=== PATIENT | female | born 1980 | race Caucasian/White ===

== ENCOUNTER → 2020-03-26 10:03 | Outpatient (BNVA) | payer MEDICAID, SELFPAY | PROVIDERS: PCP Family Medicine; Referring Provider Family Medicine; Visit Provider Hospitalist | DX: J45.51 Severe persistent asthma with (acute) exacerbation (principal); J38.3 Other diseases of vocal cords; J30.9 Allergic rhinitis, unspecified | CPT/HCPCS: 99214 ==

== ENCOUNTER → 2020-04-23 14:28 | Outpatient (BNVA) | payer MEDICAID, SELFPAY | PROVIDERS: PCP Family Medicine; Referring Provider Family Medicine; Visit Provider Nurse Practitioner Family | DX: M53.3 Sacrococcygeal disorders, not elsewhere classified (principal); M54.16 Radiculopathy, lumbar region | CPT/HCPCS: 99212 ==

== ENCOUNTER → 2020-05-10 13:59 | Outpatient (BNVA) | payer MEDICAID, SELFPAY | PROVIDERS: PCP Family Medicine; Referring Provider Family Medicine; Visit Provider Hospitalist | DX: J45.51 Severe persistent asthma with (acute) exacerbation (principal); R06.00 Dyspnea, unspecified | CPT/HCPCS: 90686; 99212 ==

== ENCOUNTER 2020-06-11 09:44 | Outpatient (REF) | payer MEDICAID, SELFPAY ==
--- NOTE | 2020-06-11 09:50 | XR_ITS ---
EXAMINATION: XR CHEST CLINICAL INFORMATION: Dyspnea COMPARISON: Previous chest x-ray July 2019 TECHNIQUE: 2 views of the chest were obtained. FINDINGS: The cardiac and mediastinal contours are normal. The lungs are clear. There is no pleural effusion or pneumothorax. There are surgical clips in the region of the stomach. Bony structures are unremarkable. XR/XR chest 2V IMPRESSION: Unremarkable examination.
== END 2020-06-11 09:45 | disposition home or self-care (01) ==
LOC: HO.XRAY 09:44
PROVIDERS: PCP Family Medicine; Visit Provider Hospitalist
DX: J45.51 Severe persistent asthma with (acute) exacerbation (principal); R06.00 Dyspnea, unspecified
CPT/HCPCS: 71046

== ENCOUNTER → 2020-06-25 14:00 | Outpatient (BNVA) | payer MEDICAID, SELFPAY | PROVIDERS: PCP Family Medicine; Visit Provider Hospitalist | DX: J45.51 Severe persistent asthma with (acute) exacerbation (principal) ==

== ENCOUNTER 2020-07-06 10:26 | Day surgery (SDC) | payer MEDICAID, SELFPAY ==
[2020-07-02 11:25] VITALS: BMI 21.6
--- NOTE | 2020-07-05 09:55 | P.CONAN_ITS ---
Documented by User: More Malka 07/05/20 09:59 HPI - Anesthesia Eval Consult details Narrative: 40yo F for Ganglion Impar Block Asthma exac 06/25/20 by telephone visit with pulm. Inhalers and prednisone rx'd. [facility], [facility] Past Medical History Medical History Asthma Chronic allergic rhinitis Depression Dyspnea Elevated cholesterol GERD (gastroesophageal reflux disease) Vocal cord dysfunction Family History Family History Other Asthma Social History Social History Smoking Status: Never smoker Use of substances other than those prescribed or required for medical reasons: No Advance Directives: No Advance Directives Information Provided: Yes Meds Allergies Allergy/AdvReac Type Severity Reaction Status Date / Time No Known Allergies Allergy Verified 06/25/20 14:37 [No Known Allergies*] Home Medications Medication Instructions Recorded Confirmed Type albuterol sulfate 2.5 mg INHALATION Q4-6H PRN 03/10/20 06/25/20 History albuterol sulfate 90 mcg/actuation 2 puff INHALATION Q4-6H PRN 03/10/20 06/25/20 History aerosol inhaler amitriptyline 10 mg tablet 10 mg PO BEDTIME 03/10/20 06/25/20 History aspirin 81 mg tablet,delayed 81 mg PO DAILY 03/10/20 06/25/20 History release atorvastatin 40 mg tablet 40 mg PO BEDTIME 03/10/20 06/25/20 History budesonide-formoterol HFA 160 2 puff INHALATION BID 03/10/20 06/25/20 History mcg-4.5 mcg/actuation aerosol inhaler ebqspgmimi-rkavlkspftrhl-bfmybsqo 1 cap PO Q4H PRN 03/10/20 06/25/20 History 50 mg-300 mg-40 mg capsule duloxetine 60 mg capsule,delayed 60 mg PO DAILY 03/10/20 06/25/20 History release fluoxetine 10 mg capsule 10 mg PO BID 03/10/20 06/25/20 History mirtazapine 30 mg tablet 30 mg PO BEDTIME 03/10/20 06/25/20 History omeprazole 20 mg tablet,delayed 20 mg PO DAILY 03/10/20 06/25/20 History release prazosin 2 mg capsule 2 mg PO BEDTIME 10/03/20 01/18/21 History prednisone 10 mg tablet 10 mg PO DAILY 03/10/20 06/25/20 History pregabalin 150 mg capsule 150 mg PO DAILY 03/10/20 06/25/20 History risperidone 0.5 mg tablet 0.5 mg PO DAILY 03/10/20 06/25/20 History tiotropium bromide 18 mcg capsule 1 cap INHALATION DAILY 03/10/20 06/25/20 History with inhalation device tizanidine 2 mg capsule 2 mg PO BEDTIME 03/10/20 06/25/20 History Exam Exam Date and Time: July 05, 2020 0955 Height,Weight and Vital Signs: Height 5 ft 4 in Weight 57.153 kg Assessment and Plan Assessment Anesthesia Assessment: Chart Reviewed Documented by User: Bulmaro Howard 07/06/20 13:09 [facility] Past Medical History Medical History Asthma Chronic allergic rhinitis Depression Dyspnea Elevated cholesterol GERD (gastroesophageal reflux disease) Vocal cord dysfunction Family History Family History Other Asthma Social History Social History Smoking Status: Never smoker Use of substances other than those prescribed or required for medical reasons: No Advance Directives: No Advance Directives Information Provided: Yes Meds Allergies Allergy/AdvReac Type Severity Reaction Status Date / Time No Known Allergies Allergy Verified 06/25/20 14:37 [No Known Allergies*] Home Medications Medication Instructions Recorded Confirmed Type albuterol sulfate 2.5 mg INHALATION Q4-6H PRN 03/10/20 06/25/20 History albuterol sulfate 90 mcg/actuation 2 puff INHALATION Q4-6H PRN 03/10/20 06/25/20 History aerosol inhaler amitriptyline 10 mg tablet 10 mg PO BEDTIME 03/10/20 06/25/20 History aspirin 81 mg tablet,delayed 81 mg PO DAILY 03/10/20 06/25/20 History release atorvastatin 40 mg tablet 40 mg PO BEDTIME 03/10/20 06/25/20 History budesonide-formoterol HFA 160 2 puff INHALATION BID 03/10/20 06/25/20 History mcg-4.5 mcg/actuation aerosol inhaler lhqlthkutj-fyfhillmdyxww-lnvrggoh 1 cap PO Q4H PRN 03/10/20 06/25/20 History 50 mg-300 mg-40 mg capsule duloxetine 60 mg capsule,delayed 60 mg PO DAILY 03/10/20 06/25/20 History release fluoxetine 10 mg capsule 10 mg PO BID 03/10/20 06/25/20 History mirtazapine 30 mg tablet 30 mg PO BEDTIME 03/10/20 06/25/20 History omeprazole 20 mg tablet,delayed 20 mg PO DAILY 03/10/20 06/25/20 History release prazosin 2 mg capsule 2 mg PO BEDTIME 03/10/20 06/25/20 History prednisone 10 mg tablet 10 mg PO DAILY 03/10/20 06/25/20 History pregabalin 150 mg capsule 150 mg PO DAILY 03/10/20 06/25/20 History risperidone 0.5 mg tablet 0.5 mg PO DAILY 03/10/20 06/25/20 History tiotropium bromide 18 mcg capsule 1 cap INHALATION DAILY 03/10/20 06/25/20 History with inhalation device tizanidine 2 mg capsule 2 mg PO BEDTIME 03/10/20 06/25/20 History Exam Airway Mallampati Class: II TM Dist: >3cm Neck ROM: Full
[2020-07-06 11:22] VITALS: BMI 21.9
[2020-07-06 11:40] VITALS: BP 124/48; PULSE 84; RESP 16; TEMP 37.4; O2SAT 100
[2020-07-06 11:46] LABS: UPreg QC Valid YES; Urine Pregnancy NEGATIVE (NEGATIVE)
[2020-07-06] MEDS: Lactated Ringers 1,000 ML 100 ML IVCONT (11:48)
--- NOTE | 2020-07-06 13:15 | MHC.SHP ---
Pre-Procedural Eval Section A The History & Physical has been completed within 30 days and I have reviewed it.: No Section B Chief Complaint: coccydynia Details of Present Illness: as above Relevant Family History (Specify if Yes): No Relevant Social History: None Present Medications: None Medical History: No relevant PMH History of Previous Operations: No relevant previous surgery Allergies: Allergies Allergy/AdvReac Type Severity Reaction Status Date / Time No Known Allergies Allergy Verified 06/25/20 14:37 [No Known Allergies*] Review of Systems Sugical H&P ROS: Negative: Constitution, Cardiovascular, Respiratory, Neurological, Psychiatric, Hem-Onc, Allergic/Immunologic, Gastrointestinal, Genitourinary, Musculoskeletal, Integumentary, Endocrine and Eyes/Ears/Nose/Throat Exam Surgical H&P Exam: Normal: HEENT, Normal: Heart, Normal: Lungs, Normal: Extremities, Normal: Abdomen, Normal: Skin and Normal: Neurological Plan Diagnosis/Plan: Unchanged I have reviewed the history and physical and performed a pertinent physical examination on my patient. No changes have occurred unless specified.
--- NOTE | 2020-07-06 13:24 | FL_ITS ---
EXAMINATION: XR FLUOROSCOPY WITH IMAGES CLINICAL INFORMATION: Ganglion impar block TECHNIQUE: Fluoroscopy time: 0.2 minutes DAP: 3.46 mGycm2 Images: 2 FINDINGS: Multiple intraoperative fluoroscopic images are submitted during reported ganglion impar block. Correlation with operative report. Evaluation is limited secondary to fluoroscopic technique. IMPRESSION: Intra-operative fluoroscopic imaging provided by radiology during reported ganglion impar block. Please refer to operative note for further information.
--- NOTE | 2020-07-06 13:58 | PM.OP ---
Brief Operative Note Date of Service: 07/06/20 Pre-op diagnosis: coccydynia Post-op diagnosis: same Procedure: ganglon impar steroid injection Surgeon: Jaret Jenkins MD Anesthesia: MAC Estimated blood loss (mL): 0 Pathology: none sent Condition: stable Disposition: PACU
[2020-07-06 13:59] VITALS: BP 110/47; PULSE 85; RESP 14; TEMP 37.1; O2SAT 100
[2020-07-06 14:14] VITALS: BP 106/51; PULSE 68; RESP 16; O2SAT 100
[2020-07-06 14:28] VITALS: BP 106/54; PULSE 66; RESP 20; TEMP 36.8; O2SAT 100
--- NOTE | 2020-07-06 14:59 | HO.POSTANES ---
Post Anesthesia Evaluation Post Anesthesia Evaluation Vital Signs: Vital Signs Temp Pulse Resp BP Pulse Ox 07/06/20 14:28 98.2 F 66 20 106/54 L 100 07/06/20 14:14 68 16 106/51 L 100 07/06/20 13:59 98.8 F 85 14 110/47 L 100 07/06/20 11:40 99.3 F 84 16 124/48 L 100 Anesthesia: Monitored Mental Status: Awake Pain Control: Satisfactory Nausea/Vomiting: None Hydration: Adequate Anesthesia-Related Issues: No Anes. Related Issues
--- NOTE | 2020-07-06 15:06 | HO.POSTANES ---
Post Anesthesia Evaluation Post Anesthesia Evaluation Vital Signs: Vital Signs Temp Pulse Resp BP Pulse Ox 07/06/20 14:28 98.2 F 66 20 106/54 L 100 07/06/20 14:14 68 16 106/51 L 100 07/06/20 13:59 98.8 F 85 14 110/47 L 100 07/06/20 11:40 99.3 F 84 16 124/48 L 100 Anesthesia: Monitored Mental Status: Awake Pain Control: Satisfactory Nausea/Vomiting: None Anesthesia-Related Issues: No Anes. Related Issues
--- NOTE | 2020-07-06 16:23 | P.OP_ITS ---
Operative Note Operative Note Date of Service: 07/06/20 Narrative: Informed consent was explained to the patient. All questions were explained and answered. The patient was taken inside the operating room where she was positioned prone on the operating table. [employer] [employer] monitors were applied. Patient was sedated. The patient was taken inside of the operating room where she was positioned prone operating table. Time-out was performed delineating correct site, side, the nature of the procedure, patient's allergy, preoperative antibiotic if needed. All operating room staff was participating in OR time-out procedure. The lower back upper buttocks and inter gluteal crease were prepped with ChloraPrep and draped with sterile towels. Sterilely draped C-arm was brought over the operating field and picture of the coccyx midline superimposing the sy mphysis pubis was obtained on the screen. After that the position of the C-arm was changed for all lateral view. The coccygeal spine was chosen as the target for the injection. The intervertebral disc between the 2nd and 1st coccygeal vertebra was chosen as the target for the insertion of the needle. The projection of the target to the skin was infiltrated with lidocaine 2%. After that 22 gauge 3-1/2 inch needle was advanced through the disc on anterior posterior and lateral views. When needle cleared out the anterior contour of the coccygeal spine no more than 2 mm injection of the contrast was performed demonstrating the spread of the contrast in the posterior retro pelvic space and no contrast spread in vesicular or rectal projection. After that the treatment solution containing Kenalog 40 mg and bupivacaine 0.5% 5 mL was injected into the area. The patient tolerated procedure well. She went to recovery room where she recovered uneventfully. She went home without immediate complications.
== END 2020-07-06 14:53 | disposition home or self-care (01) ==
PROVIDERS: Nurse Practitioner; PCP Family Medicine; Visit Provider Anesthesiology
PROC: (CPT 64520; principal; 2020-07-06 11:40)
DX: M53.3 Sacrococcygeal disorders, not elsewhere classified (principal); J45.909 Unspecified asthma, uncomplicated
CPT/HCPCS: 64520; 81025; J2250; J3010; J3300; Q9967

== ENCOUNTER → 2020-08-13 13:30 | Outpatient (BNVA) | payer MEDICAID, SELFPAY | PROVIDERS: PCP Family Medicine; Visit Provider Anesthesiology | DX: M53.3 Sacrococcygeal disorders, not elsewhere classified (principal); M54.16 Radiculopathy, lumbar region; Z79.899 Other long term (current) drug therapy | CPT/HCPCS: 99212 ==

== ENCOUNTER 2020-08-24 12:35 | Outpatient (REF) | payer MEDICAID, SELFPAY ==
--- NOTE | ~2020-08-24 | XR_ITS ---
EXAMINATION: XR SHOULDER, LEFT CLINICAL INFORMATION: Pain left shoulder COMPARISON: Radiographs left shoulder 01/28/2019. TECHNIQUE: The left shoulder is imaged in 4 views. FINDINGS: There is no fracture or dislocation. The glenohumeral joint is unremarkable. The acromioclavicular alignment is normal. There is no destructive process. No visible rotator cuff calcifications. XR/XR shoulder LT min 2V IMPRESSION: Normal study.
== END 2020-08-24 12:36 | disposition home or self-care (01) ==
LOC: HO.XRAY 12:35
PROVIDERS: PCP General Practice; Visit Provider General Practice
DX: M25.512 Pain in left shoulder (principal)
CPT/HCPCS: 73030

== ENCOUNTER → 2020-12-21 10:54 | Outpatient (BNVA) | payer MEDICAID, SELFPAY | PROVIDERS: PCP General Practice; Visit Provider Hospitalist | DX: J38.3 Other diseases of vocal cords (principal); J45.51 Severe persistent asthma with (acute) exacerbation; J30.9 Allergic rhinitis, unspecified; R06.00 Dyspnea, unspecified | CPT/HCPCS: 99212 ==

== ENCOUNTER 2021-02-21 17:01 | Outpatient (REF) | payer MEDICAID, SELFPAY ==
--- NOTE | ~2021-02-21 | XR_ITS ---
EXAMINATION: XR SHOULDER, LEFT CLINICAL INFORMATION: Left shoulder pain. COMPARISON: Left shoulder radiographs dated 08/24/2020. TECHNIQUE: AP external rotation, Grashey, scapular Y, and axillary views of the left shoulder. FINDINGS: No acute fracture or dislocation. Mild glenohumeral joint space narrowing with tiny inferior marginal osteophytes, unchanged. No lytic or blastic osseous lesion. No abnormal soft tissue calcification. XR/XR shoulder LT min 2V IMPRESSION: Mild glenohumeral arthrosis, unchanged.
== END 2021-02-21 17:02 | disposition home or self-care (01) ==
LOC: HO.XRAY 17:01
PROVIDERS: PCP General Practice; Visit Provider General Practice
DX: M25.512 Pain in left shoulder (principal)
CPT/HCPCS: 73030

== ENCOUNTER → 2021-03-22 10:32 | Outpatient (BNVA) | payer MEDICAID, SELFPAY | PROVIDERS: PCP General Practice; Visit Provider Hospitalist | DX: J38.3 Other diseases of vocal cords (principal); J45.51 Severe persistent asthma with (acute) exacerbation; J30.9 Allergic rhinitis, unspecified; R06.00 Dyspnea, unspecified | CPT/HCPCS: 99212 ==

== ENCOUNTER 2021-03-25 11:26 | Outpatient (REF) | payer MEDICAID, SELFPAY ==
--- NOTE | ~2021-03-25 | MM_ITS ---
EXAMINATION: MM SCREENING DIGITAL BREAST TOMOSYNTHESIS, BILATERAL CLINICAL INFORMATION: Screening. Asymptomatic. Family history premenopausal breast cancer, sister age 38. The lifetime risk of breast cancer based on the Tyrer-Cuzick Model is 26%. COMPARISON: Mammography: 01/04/2020, 08/18/2018, 02/11/2018 TECHNIQUE: Digital breast tomosynthesis is performed in both the craniocaudal and mediolateral oblique views along with computer-aided detection (CAD). Synthesized 2D images are generated from the tomosynthesis. FINDINGS: The breasts are heterogeneously dense, which may obscure small masses (ACR BI-RADS breast composition Category c). There is further decreased breast size and increased breast parenchymal density consistent with the intentional weight loss (bariatric procedure). This is greatest between 2018 and 2019 but additional changes noted since 2019. There is interval fibronodular parenchymal pattern which could represent underlying fibrocystic changes. There is no architectural abnormality or abnormal calcifications in either breast. The axilla and skin contours are unremarkable. The right MLO view has a 0.6 cm nodular asymmetry along posterior nipple line 9 cm from nipple central aspect. The left breast has chronic circumscribed nodule posterior 9:00 position under 1 cm, 8 cm from nipple. There are 3 new nodular asymmetric densities left CC view with smooth partially obscured margins as follows: -Mid inner quadrant 5 cm from nipple measuring 0.8 cm. -Central breast 5 cm from nipple measuring 0.8 cm. -Posterior outer quadrant 0.8 cm, 8 cm from nipple. Patient will be recalled for additional imaging with targeted ultrasound. MM/MM tomosynthesis screening BI IMPRESSION: 1. Continued increased parenchymal density consistent with the intentional weight loss. 2. Smooth nodular asymmetric densities, 1 right on MLO view and 3 on left CC view. ASSESSMENT: BI-RADS 0: Incomplete - Need Additional Imaging Evaluation RECOMMENDATION: 1. Bilateral targeted breast ultrasound. 2. The lifetime risk of breast cancer based on the Tyrer-Cuzick Model is 26%. Additional annual adjunct screening with breast MRI may be of benefit in women with a risk score of 20% or greater and increased breast parenchymal density. This patient's information was entered into a reminder system with a target due date for their next mammogram.
--- NOTE | ~2021-03-25 | XR_ITS ---
EXAMINATION: XR CHEST CLINICAL INFORMATION: Dyspnea and mid chest pain. COMPARISON: 06/11/2020 chest radiographs. TECHNIQUE: 2 views of the chest were obtained. FINDINGS: No significant abnormality is noted involving the heart, lungs, mediastinum, bony thorax or soft tissues. XR/XR chest 2V IMPRESSION: No acute cardiopulmonary process.
[2021-03-25 11:52] LABS: MANUAL DIFF FLAG NO
[2021-03-25 12:25] LABS: Basophils Percent Auto 0.4 % (0-2); Eosinophils Absolute Auto 0.1 X10*3/uL (0.0-0.4); Eosinophils Percent Auto 1.5 % (0-4); Hemoglobin 10.7 g/dl (12.0-16.0); Lymphocytes Absolute Auto 1.9 X10*3/uL (1.2-4.9); Lymphocytes Percent Auto 42.3 % (20-40); Mean Corpuscular HGB Conc 31.5 g/dl (31.0-35.0); Mean Corpuscular Volume 82.7 fL (80-98); Mean Platelet Volume 9.9 fL (9.4-12.3); Monocytes Absolute Auto 0.3 X10*3/uL (0.1-1.2); Monocytes Percent Auto 6.2 % (2-11); Neutrophils Absolute Auto 2.3 X10*3/uL (2.0-8.3); Neutrophils Percent Auto 49.6 % (45-73); Platelet Count 386 X10*3/uL (160-400); Red Blood Count 4.11 X10*6/uL (4.20-5.50); White Blood Count 4.5 X10*3/uL (4.8-10.8)
[2021-03-25 12:49] LABS: Anion Gap 12 (12-20); Blood Urea Nitrogen 9 mg/dL (9-16); Carbon Dioxide 26 mmol/L (22-29); Chloride 106 mmol/L (96-108); Estimated Glomerular Filt Rate > 60; Glucose Random 80 mg/dL (60-115); Potassium 4.7 mmol/L (3.3-5.1); Sodium 139 mmol/L (135-145)
[2021-03-25 13:25] LABS: Erythrocyte Sedimentation Rate 21 MM/HR (0-20)
[2021-03-28 04:11] LABS: Immunoglobulin E 45 kU/L (<OR=114)
[2021-03-29 14:45] LABS: Vitamin D 25-OH, D2 5 ng/mL; Vitamin D 25-OH, D3 20 ng/mL; Vitamin D 25-OH, Total 25 ng/mL (30-100)
== END 2021-03-25 11:27 | disposition home or self-care (01) ==
LOC: HO.MAMMO 11:26
PROVIDERS: Absent Provider Hospitalist; PCP General Practice; Visit Provider General Practice
DX: Z12.31 Encounter for screening mammogram for malignant neoplasm of breast (principal); R06.00 Dyspnea, unspecified; J45.909 Unspecified asthma, uncomplicated; J30.9 Allergic rhinitis, unspecified
CPT/HCPCS: 36415; 71046; 77063; 77067; 80048; 82306; 82785; 85025; 85652

== ENCOUNTER 2021-03-28 13:08 | Outpatient (REF) | payer MEDICAID, SELFPAY ==
--- NOTE | ~2021-03-28 | US_ITS ---
EXAMINATION: US DIAGNOSTIC ULTRASOUND BREAST, RIGHT US DIAGNOSTIC ULTRASOUND BREAST, LEFT CLINICAL INFORMATION: Recall from screening for smooth bilateral nodular asymmetric densities 1 on right inferior left. COMPARISON: Mammography 03/25/2021, 01/04/2020, 08/18/2018, 02/11/2018. TECHNIQUE: Ultrasound of the bilateral breast is performed with real-time muñoz scale imaging and color Doppler. Right breast is imaged 7:00 through 11:00 position and left breast is imaged upper and outer quadrants. FINDINGS: Right: There is an oval simple cyst corresponding to the finding on mammography 9:00 position 5 cm from nipple measuring approximately 1.2 x 1.0 x 0.4 cm. There is a fine avascular internal septation. No solid component. There is increased through-transmission of sound. A few other scattered tiny cysts are also noted in the targeted area. There is no focal suspicious finding. There is no solid mass, architectural abnormality, duct ectasia, or edema in the soft tissue planes. Left: There are 3 cysts demonstrated corresponding to finding on recent mammography: -2:00, 4 cm from nipple: Cyst, 0.9 x 0.5 cm. -3:00, 7 cm from nipple: Cyst, 0.9 x 0.4 cm. -10:00, 4 cm from nipple: Cyst, 0.5 x 0.5 cm. The cysts are anechoic and show no associated color flow. There is increased through-transmission of sound at real-time imaging. A few other scattered tiny cysts are also noted in the targeted areas. There is no focal suspicious finding. There is no solid mass, architectural abnormality, duct ectasia, or edema in the soft tissue planes. Results are discussed with the patient at time of visit, using an condenser winder. US/US breast RT complete IMPRESSION: Scattered bilateral cysts corresponding to recent mammography. ASSESSMENT: BI-RADS 2: Benign RECOMMENDATION: Routine annual mammography screening. This patient's information was entered into a reminder system with a target due date for their next mammogram.
--- NOTE | ~2021-03-28 | US_ITS ---
EXAMINATION: US DIAGNOSTIC ULTRASOUND BREAST, RIGHT US DIAGNOSTIC ULTRASOUND BREAST, LEFT CLINICAL INFORMATION: Recall from screening for smooth bilateral nodular asymmetric densities 1 on right inferior left. COMPARISON: Mammography 03/25/2021, 01/04/2020, 08/18/2018, 02/11/2018. TECHNIQUE: Ultrasound of the bilateral breast is performed with real-time muñoz scale imaging and color Doppler. Right breast is imaged 7:00 through 11:00 position and left breast is imaged upper and outer quadrants. FINDINGS: Right: There is an oval simple cyst corresponding to the finding on mammography 9:00 position 5 cm from nipple measuring approximately 1.2 x 1.0 x 0.4 cm. There is a fine avascular internal septation. No solid component. There is increased through-transmission of sound. A few other scattered tiny cysts are also noted in the targeted area. There is no focal suspicious finding. There is no solid mass, architectural abnormality, duct ectasia, or edema in the soft tissue planes. Left: There are 3 cysts demonstrated corresponding to finding on recent mammography: -2:00, 4 cm from nipple: Cyst, 0.9 x 0.5 cm. -3:00, 7 cm from nipple: Cyst, 0.9 x 0.4 cm. -10:00, 4 cm from nipple: Cyst, 0.5 x 0.5 cm. The cysts are anechoic and show no associated color flow. There is increased through-transmission of sound at real-time imaging. A few other scattered tiny cysts are also noted in the targeted areas. There is no focal suspicious finding. There is no solid mass, architectural abnormality, duct ectasia, or edema in the soft tissue planes. Results are discussed with the patient at time of visit, using an spanish interpreter. US/US breast LT complete IMPRESSION: Scattered bilateral cysts corresponding to recent mammography. ASSESSMENT: BI-RADS 2: Benign RECOMMENDATION: Routine annual mammography screening. This patient's information was entered into a reminder system with a target due date for their next mammogram.
== END 2021-03-28 13:09 | disposition home or self-care (01) ==
LOC: HO.MAMMO 13:08
PROVIDERS: Visit Provider General Practice
DX: R92.2 Inconclusive mammogram (principal)
CPT/HCPCS: 76641

== ENCOUNTER → 2021-04-11 13:59 | Outpatient (BNVA) | payer MEDICAID, SELFPAY | PROVIDERS: PCP General Practice; Referring Provider General Practice; Visit Provider Internal Medicine | DX: R00.2 Palpitations (principal); R07.89 Other chest pain; R06.02 Shortness of breath | CPT/HCPCS: 93005; 99202 ==

== ENCOUNTER → 2021-04-17 14:41 | Outpatient (REF) | payer MEDICAID, SELFPAY ==
--- NOTE | 2021-04-17 14:47 | CA_ITS ---
Transthoracic Echocardiogram Patient (Last, First, Middle): [place] Linares, Gender: Female Date of : 1980 Age: 40 Procedure Date: 04/17/2021 Procedure Type: Transthoracic Echocardiogram Location: OP Height: 162.56 cm Weight: 53.52 kg BSA: 1.56 m2 Heart Rate: bpm BP: 100 / 66 mmHg Oncologist: CONCHA/CHAKA Referring MD: Carson Victor MD Symptoms: R06.02 - Shortness of breath Study Quality: Good ECG Rhythm: Sinus Conclusions: - The left ventricular systolic function is normal. The calculated ejection fraction is 65% by biplane method. - No obvious valvular pathology seen on this study. Findings Left Ventricle Normal left ventricular cavity size. There is normal left ventricular wall thickness. The left ventricular systolic function is normal. The calculated ejection fraction is 65% by biplane method. There is no evidence of regional wall motion abnormalities. Diastolic function is normal for age. Right Ventricle Normal right ventricular cavity size and systolic function. Atria Both atria are normal in size. Aortic Valve There is a normal trileaflet aortic valve. There is no aortic valve stenosis. There is no aortic valve regurgitation. Mitral Valve The mitral valve appears normal. There is trace mitral valve regurgitation. There is no mitral valve stenosis. Pulmonic Valve The pulmonic valve was not well visualized. Tricuspid Valve Normal tricuspid valve structure. There is trace tricuspid valve regurgitation. The pulmonary artery systolic pressure is normal. Great Vessels The aortic annulus, sinuses of valsalva, and asc aorta are normal in size. Venous The inferior vena cava is normal in size and collapses greater than 50% with inspiration. Pericardium/Pleural There is no evidence of pericardial effusion. Prior Study Comparison No prior study available for comparison. Recommendations, Care & Conclusions No obvious valvular pathology seen on this study. Measurements 2D Linear Measurements IVSd: 0.72 0.6-0.9/0.6-1.0 cm LVIDd: 4.48 3.9-5.3/4.2-5.9 cm LVIDd Index: 2.87 2.4-3.2/2.2-3.1 cm/m2 LVIDs: 3.11 2.0-3.6 cm LVPWd: 0.71 0.7-1.1 cm Ao Root: 3.10 2.1-3.5 cm LA Diam: 3.30 2.7-3.8/3.0-4.0 cm LAIDs Index: 2.12 1.5-2.3 cm/m2 LV Mass: 120.73 67-162/88-224 g LV Mass Index: 77.39 43-95/49-115 g/m2 LVOT Diam: 2.00 3.0+(-)1.3 cm 2D Systolic Function EF 4C: 66.20 >55% EF 2C: 64.10 >55% EF BiP: 64.80 >55% Mitral Valve MV Pk E: 0.72 MV PK A: 0.48 MV Decel Time: 326.00 E/A: 1.50 E'Lateral: 19.00 E'Medial: 13.40 E/E' Med: 5.30 E/E' Lat: 3.80 PHT: 95.00 MVA PHT: 2.32 Decel [place]: 2.20 Aortic Valve AoV Pk Joe: 1.20 AoV Mn Joe: 0.87 AoV VTI: 0.27 AoV Pk Grad: 6.00 Aov Mn Grad: 3.00 SANDEEP Cont.VTI: 2.56 LVOT LVOT Pk Joe: 0.99 LVOT Mn Joe: 0.66 LVOT VTI: 0.22 LVOT Pk Grad: 4.00 LVOT Mn Grad: 2.00 LVOT Diam: 2.00 LVOT Area: 3.14 Diastolic Function MV Pk E: 0.72 MV Pk A: 0.48 E/A: 1.50 E'Medial: 13.40 E/E' Med: 5.30 E' Laterial: 19.00 E/E' Lat: 3.80 Right Ventricle TAPSE (mm): 2.40 TVS' Joe: 12.20 Tricuspid Valve TR Pk Joe: 2.23 TR Pk Grad: 20.00 RA Press: 3.00 RVSP: 27.00 Great Vessels Aorta Ao Root-2D: 3.10 2.0-3.7 cm Ao Asc: 2.50 2.1-3.4 cm Ao Arch: 2.60 Updated in Other Vendor System with Status of Final Carson Victor MD electronically signed on 04/18/2021 4:08:41 PM with status of Final
== END ==
LOC: HO.CARD 14:41
PROVIDERS: PCP General Practice; Visit Provider Internal Medicine
DX: R06.02 Shortness of breath (principal)
CPT/HCPCS: 93306

== ENCOUNTER → 2021-04-18 06:54 | Outpatient (REF) | payer MEDICAID, SELFPAY ==
--- NOTE | 2021-04-18 07:18 | HM_ITS ---
Total monitoring time 4 days and 1 hour. Underlying rhythm is sinus. Minimum heart rate 56/Min. Maximum 168/Min. Average 85/Min. About 25% the time, rate greater than 100/Min. No significant bradycardia. No atrial fibrillation or flutter or AV blocks or pauses. Very rare supraventricular ectopy. Stephan less than 0.01%. Rare ventricular ectopy, isolated with the burden of 0.23%. No patient events. MTDD
== END ==
LOC: HO.CARD 06:54
PROVIDERS: PCP General Practice; Visit Provider Internal Medicine
DX: R00.2 Palpitations (principal)
CPT/HCPCS: 93242

== ENCOUNTER 2021-05-06 09:53 | Outpatient (REF) | payer MEDICAID, SELFPAY | END 2021-05-06 09:54 | disposition home or self-care (01) | LOC: HO.LAB 09:53 | PROVIDERS: Visit Provider Internal Medicine | DX: Z20.822 Contact with and (suspected) exposure to COVID-19 (principal) | CPT/HCPCS: C9803; U0003; U0005 ==

== ENCOUNTER 2021-05-17 06:10 | Day surgery (SDC) | payer MEDICAID, SELFPAY ==
--- NOTE | 2021-05-16 10:19 | P.CONAN_ITS ---
Documented by User: More Ace NP 05/16/21 10:21 HPI - Anesthesia Eval Consult details Narrative: 40yo F for Ganglion Impar Chemical Ablation s/p same 06/2020 with MAC [facility] Active Problems Active Problems: All Active Problems (Updated 05/14/21 @ 10:42 by Mora Ruiz, LEYDA) Coccydynia (Acute) Lumbar radiculopathy (Acute) Heart palpitations (Acute) Atypical chest pain (Acute) SOB (shortness of breath) (Acute) Dyspnea (Acute) Chronic allergic rhinitis (Acute) Asthma (Acute) Vocal cord dysfunction (Acute) Past Medical History Medical History Anxiety Asthma Chronic allergic rhinitis Depression Dyspnea Elevated cholesterol GERD (gastroesophageal reflux disease) PTSD (post-traumatic stress disorder) SOB (shortness of breath) Vocal cord dysfunction Family History Family History (Updated 04/11/21 @ 14:40 by AMY kSelton) Father No problems noted. Mother No problems noted. Other Asthma Surgical History Surgical History History of gastric surgery Hx of tubal ligation Social History Social History Patient Tobacco Use Status: Never used Tobacco Use of substances other than those prescribed or required for medical reasons: No Are you DNR?: No Advance Directives: No Advance Directives Information Provided: Yes Advance Directives on File: No Patient : No FDLMP: 04/27/2021 : No Poor oral hygiene: No Meds Allergies Allergy/AdvReac Type Severity Reaction Status Date / Time No Known Allergies Allergy Verified 05/17/21 06:32 [No Known Allergies*] Home Medications Medication Instructions Recorded Confirmed Last Taken Type albuterol sulfate 2.5 mg INHALATION Q4-6H PRN 03/10/20 05/14/21 Unknown History albuterol sulfate 90 mcg/actuation 2 puff INHALATION Q4-6H PRN 03/10/20 05/14/21 Unknown History aerosol inhaler (ProAir HFA) amitriptyline 10 mg tablet 10 mg PO BEDTIME 03/10/20 05/14/21 Unknown History aspirin 81 mg tablet,delayed 81 mg PO DAILY 03/10/20 05/17/21 05/08/21 History release (Adult Low Dose Aspirin) atorvastatin 40 mg tablet 40 mg PO BEDTIME 03/10/20 05/14/21 Unknown History huxlzfajhi-agncsuyctzghq-uulcrkdo 1 cap PO Q4H PRN 03/10/20 05/14/21 03/26/20 10:38 History 50 mg-300 mg-40 mg capsule (Fioricet) duloxetine 60 mg capsule,delayed 60 mg PO DAILY 03/10/20 05/14/21 Unknown History release fluoxetine 10 mg capsule 10 mg PO BID 03/10/20 05/14/21 Unknown History mirtazapine 30 mg tablet 30 mg PO BEDTIME 03/10/20 05/14/21 Unknown History prazosin 2 mg capsule 2 mg PO BEDTIME 03/10/20 05/14/21 Unknown History pregabalin 150 mg capsule (Lyrica) 150 mg PO DAILY 03/10/20 05/14/21 Unknown History risperidone 0.5 mg tablet 0.5 mg PO DAILY 03/10/20 05/14/21 Unknown History tizanidine 2 mg capsule 2 mg PO BEDTIME 03/10/20 05/14/21 Unknown History Exam Exam Date and Time: May 16, 2021 1019 Height,Weight and Vital Signs: Height 5 ft 4 in Weight 53.07 kg Assessment and Plan Assessment Anesthesia Assessment: Chart Reviewed Documented by User: Jenny Howard MD 05/17/21 07:37 [facility] Past Medical History Medical History Anxiety Asthma Chronic allergic rhinitis Depression Dyspnea Elevated cholesterol GERD (gastroesophageal reflux disease) PTSD (post-traumatic stress disorder) SOB (shortness of breath) Vocal cord dysfunction Functional capacity: independent ambulation Patient : No Family History Family History (Updated 04/11/21 @ 14:40 by AMY Skelton) Father No problems noted. Mother No problems noted. Other Asthma Family history of problems with anesthesia: No Surgical History Surgical History History of gastric surgery Hx of tubal ligation Social History Social History Patient Tobacco Use Status: Never used Tobacco Use of substances other than those prescribed or required for medical reasons: No Are you DNR?: No Advance Directives: No Advance Directives Information Provided: Yes Advance Directives on File: No Patient : No FDLMP: 04/27/2021 : No Poor oral hygiene: No Meds Allergies Allergy/AdvReac Type Severity Reaction Status Date / Time No Known Allergies Allergy Verified 05/17/21 06:32 [No Known Allergies*] Home Medications Medication Instructions Recorded Confirmed Last Taken Type albuterol sulfate 2.5 mg INHALATION Q4-6H PRN 03/10/20 05/14/21 Unknown History albuterol sulfate 90 mcg/actuation 2 puff INHALATION Q4-6H PRN 03/10/20 05/14/21 Unknown History aerosol inhaler (ProAir HFA) amitriptyline 10 mg tablet 10 mg PO BEDTIME 03/10/20 05/14/21 Unknown History aspirin 81 mg tablet,delayed 81 mg PO DAILY 03/10/20 05/17/21 05/08/21 History release (Adult Low Dose Aspirin) atorvastatin 40 mg tablet 40 mg PO BEDTIME 03/10/20 05/14/21 Unknown History eqnigntmvg-yvgxuylfybgpg-ukwartfc 1 cap PO Q4H PRN 03/10/20 05/14/21 03/26/20 10:38 History 50 mg-300 mg-40 mg capsule (Fioricet) duloxetine 60 mg capsule,delayed 60 mg PO DAILY 03/10/20 05/14/21 Unknown History release fluoxetine 10 mg capsule 10 mg PO BID 03/10/20 05/14/21 Unknown History mirtazapine 30 mg tablet 30 mg PO BEDTIME 03/10/20 05/14/21 Unknown History prazosin 2 mg capsule 2 mg PO BEDTIME 03/10/20 05/14/21 Unknown History pregabalin 150 mg capsule (Lyrica) 150 mg PO DAILY 03/10/20 05/14/21 Unknown History risperidone 0.5 mg tablet 0.5 mg PO DAILY 03/10/20 05/14/21 Unknown History tizanidine 2 mg capsule 2 mg PO BEDTIME 03/10/20 05/14/21 Unknown History Exam Airway Mallampati Class: I TM Dist: >3cm Neck ROM: Full Heart: RRR Lungs: CTA Assessment and Plan Final Anesthetic Review Family History of Problems with Anesthesia: No ASA Class: II Final Preanesthetic Review: No Changes in Pt Med Stat, Meds/Allgs Chart Reviewed, Consent Obtained/Reviewed and Anes Risks/Benef Reviewed Patient Risk: Low Procedure Risk: Low Anesthetic Plan Anesthetic Plan: MAC: Disposition: Standard PACU
--- NOTE | 2021-05-16 18:38 | MHC.SHP ---
Pre-Procedural Eval Section A Date of Service: 05/16/21 The patient is an INPATIENT: No Changes since office visit: Yes Patient answered all questions The History & Physical has been completed within 30 days and I have reviewed it.: No Section B Chief Complaint: Coccydynia Details of Present Illness: As above Relevant Social History: None Present Medications: see Short Stay Collaborative assessment Medical History: No relevant PMH History of Previous Operations: No relevant previous surgery Allergies: Allergies Allergy/AdvReac Type Severity Reaction Status Date / Time No Known Allergies Allergy Verified 05/14/21 10:41 [No Known Allergies*] Review of Systems Sugical H&P ROS: Negative: Constitution, Cardiovascular, Respiratory, Neurological, Psychiatric, Hem-Onc, Allergic/Immunologic, Gastrointestinal, Genitourinary, Musculoskeletal, Integumentary, Endocrine and Eyes/Ears/Nose/Throat Exam Surgical H&P Exam: Normal: HEENT, Normal: Heart, Normal: Lungs, Normal: Extremities, Normal: Abdomen, Normal: Skin and Normal: Neurological Plan Diagnosis/Plan: Unchanged I have reviewed the history and physical and performed a pertinent physical examination on my patient. No changes have occurred unless specified.
--- NOTE | ~2021-05-17 | FL_ITS ---
EXAMINATION: XR FLUOROSCOPY WITH IMAGES CLINICAL INFORMATION: Ganglion impar block. COMPARISON: June 2020 TECHNIQUE: Fluoroscopy performed by Dr. Jaret Jenkins. Fluoroscopy time: 0.6 minutes DAP: 8 mGy-cm2 Images: 2 FINDINGS: Two lateral views of the sacrum demonstrate needle placement and contrast injection anterior to the lower sacrum. FL/FL guidance in OR IMPRESSION: Fluoroscopy guidance for pain management procedure.
[2021-05-17 06:35] VITALS: BP 112/60; PULSE 78; RESP 16; TEMP 36.9; O2SAT 100
[2021-05-17] MEDS: Lactated Ringers 1,000 ML 100 ML IVCONT (06:46)
--- NOTE | 2021-05-17 08:05 | W.PM.OPN ---
Operative Note Operative Note Date of Service: 05/17/21 Narrative: Informed consent was explained to the patient. Risks of rectal fistula, anorgasmia after the procedure (inability to achieve orgasm), failure to resolve pain, numbness in perineal area, bleeding and infection were carefully explained to the patient with the help of [facility] medical surgery nurse Vladislav. All questions were explained and? answered.? The patient was taken inside the operating room where she was positioned prone on the operating table.? [employer] monitors were? applied.? Patient was sedated.? ?The patient was taken inside of the operating room where she was positioned prone operating table with the pillow under the pelvis.? Time-out was performed delineating correct site, side, the nature of the procedure, patient's allergy, preoperative antibiotic if needed.? All operating room staff was participating in OR time-out procedure. The lower back upper buttocks and inter gluteal crease were prepped with ChloraPrep and draped with sterile towels.? Sterilely draped C-arm was brought over the operating field and picture of the coccyx midline superimposing the symphysis pubis was obtained on the screen. After that the position of the C-arm was changed for all lateral view.? The coccygeal spine was chosen as the target for the injection.? The intervertebral disc between the 2nd and 1st coccygeal vertebra was chosen as the target for the insertion of the needle.? The projection of the target to the skin was infiltrated with lidocaine 2%.? After that 22 gauge 3-1/2 inch needle was advanced through the disc on intermittent anterio- posterior and lateral views.? When needle cleared out of the anterior contour of the coccygeal spine no more than? 1 mm injection of the contrast was performed demonstrating the spread of the contrast in the posterior retro pelvic space and no contrast spread in vesicular or rectal projection.? After that the treatment solution containing absolute alcohol 99% 4 mls mixed with 1 ml of lidocain 2% 1 ml and Marcain 0.5% 1 ml was injected into the needle under continuous fluoroscopy image. No intrarectal and no intravascular spread of the contrast was noted. After that the needle was flushed with 0.2 mls of normal saline, stilet was inserted into the needle and the needle was removed. The patient was transfered prone in bed and will remain prone for 1 hour in PACU.
--- NOTE | 2021-05-17 08:14 | PM.OP ---
Brief Operative Note Date of Service: 05/17/21 Pre-op diagnosis: coccydynia Post-op diagnosis: same Procedure: ganglion impar chemical ablation. Implants: none Surgeon: Jaret Jenkins MD Anesthesia: MAC Was an Propellant [employer]er used for this Procedure?: No Estimated blood loss (mL): 0 Pathology: none sent Condition: stable Disposition: PACU
[2021-05-17 08:16] VITALS: BP 102/56; PULSE 91; RESP 12; TEMP 36.1; O2SAT 100
[2021-05-17 08:31] VITALS: BP 117/62; PULSE 97; RESP 12; O2SAT 100
[2021-05-17 08:46] VITALS: BP 109/65; PULSE 75; RESP 12; O2SAT 100
[2021-05-17 08:56] VITALS: BP 112/59; PULSE 70; RESP 12; O2SAT 100
[2021-05-17 09:11] VITALS: BP 109/65; PULSE 72; RESP 14; TEMP 36.4; O2SAT 100
--- NOTE | 2021-05-17 10:55 | HO.POSTANES ---
Post Anesthesia Evaluation Post Anesthesia Evaluation Vital Signs: Vital Signs Temp Pulse Resp BP Pulse Ox 05/17/21 09:11 97.5 F 72 14 109/65 100 05/17/21 08:56 70 12 112/59 L 100 05/17/21 08:46 75 12 109/65 100 05/17/21 08:31 97 12 117/62 100 05/17/21 08:16 97 F 91 12 102/56 L 100 05/17/21 06:35 98.5 F 78 16 112/60 100 Anesthesia: Monitored Mental Status: Awake Pain Control: Satisfactory Nausea/Vomiting: None Hydration: Adequate Anesthesia-Related Issues: No Anes. Related Issues
== END 2021-05-17 10:00 | disposition home or self-care (01) ==
PROVIDERS: PCP General Practice; Visit Provider Anesthesiology
PROC: (CPT 64520; principal; 2021-05-17 07:30)
DX: M53.3 Sacrococcygeal disorders, not elsewhere classified (principal); M54.16 Radiculopathy, lumbar region; M79.652 Pain in left thigh; M79.675 Pain in left toe(s); J45.909 Unspecified asthma, uncomplicated; J38.3 Other diseases of vocal cords; F43.10 Post-traumatic stress disorder, unspecified; F32.9 Major depressive disorder, single episode, unspecified; K21.9 Gastro-esophageal reflux disease without esophagitis; E78.00 Pure hypercholesterolemia, unspecified; Z98.84 Bariatric surgery status; Z79.82 Long term (current) use of aspirin; Z79.51 Long term (current) use of inhaled steroids; Z79.899 Other long term (current) drug therapy
CPT/HCPCS: 64520; J1100; J2250; J3010

== ENCOUNTER 2021-05-20 15:48 | Outpatient (REF) | payer MEDICAID, SELFPAY ==
--- NOTE | ~2021-05-20 | MR_ITS ---
EXAMINATION: MR HAND WITHOUT CONTRAST, RIGHT CLINICAL INFORMATION: Right hand pain and numbness. Third and 4th digit numbness, cramping, metacarpal symptoms for 1 month. COMPARISON: None TECHNIQUE: Multisequence MR imaging of the right hand was obtained without contrast on a high-field strength scanner. FINDINGS: BONE: No abnormal marrow signal. No acute fracture or dislocation. Grossly intact articular cartilage. MUSCLES/TENDONS: The visualized flexor and extensor tendons are intact. No acute tendon injury. LIGAMENTS: The collateral ligaments are grossly intact. SOFT TISSUES: No abnormal soft tissue mass or fluid collection. The median nerve appears grossly intact. MR/MR hand RT wo con IMPRESSION: Unremarkable examination.
== END 2021-05-20 15:49 | disposition home or self-care (01) ==
LOC: HO.MRI 15:48
PROVIDERS: PCP General Practice; Visit Provider Internal Medicine
DX: M79.641 Pain in right hand (principal); R20.0 Anesthesia of skin
CPT/HCPCS: 73218

== ENCOUNTER → 2021-06-05 13:47 | Outpatient (BNVA) | payer MEDICAID, SELFPAY | PROVIDERS: PCP General Practice; Referring Provider General Practice; Visit Provider Nurse Practitioner Family | DX: R00.2 Palpitations (principal); R42 Dizziness and giddiness | CPT/HCPCS: 99212 ==

== ENCOUNTER → 2021-06-14 13:34 | Outpatient (REF) | payer MEDICAID, SELFPAY ==
--- NOTE | 2021-06-14 13:37 | HM_ITS ---
REQUESTING PHYSICIAN: Keily Lyons N.P. TEST PERFORMED: Cardiac event monitoring. INDICATION: Palpitations. ENROLLMENT PERIOD: 06/14/2021, to 07/14/2021; 30 days. FINDINGS: In the above monitoring period, underlying rhythm was sinus. Average rate is 79 beats per minute. Rates are between 49 to 178 beats per minute. There are PACs noted and an atrial couplet noted. Occasional PVCs, burden less than 1%. Ventricular couplet noted. No clear patient symptoms. CONCLUSION: Studies positive for occasional PACs, atrial couplets, PVCs, and ventricular couplet. Carson Victor MD HS/MODL / [id number]
== END ==
LOC: HO.CARD 13:34
PROVIDERS: PCP General Practice; Visit Provider Nurse Practitioner Family
DX: R00.2 Palpitations (principal); R42 Dizziness and giddiness
CPT/HCPCS: 93270

== ENCOUNTER → 2021-06-19 12:34 | Outpatient (BNVA) | payer MEDICAID, SELFPAY | PROVIDERS: PCP General Practice; Visit Provider Anesthesiology | DX: M53.3 Sacrococcygeal disorders, not elsewhere classified (principal); N73.9 Female pelvic inflammatory disease, unspecified | CPT/HCPCS: 99212 ==

== ENCOUNTER 2021-07-03 07:36 | Outpatient (REF) | payer MEDICAID, SELFPAY ==
[2021-07-03 08:44] LABS: Binax Internal Control QC Valid; Binax Now Covid-19 Ag Negative (Negative)
== END 2021-07-03 07:37 | disposition home or self-care (01) ==
LOC: HO.LAB 07:36
PROVIDERS: PCP General Practice; Visit Provider Internal Medicine
DX: Z20.822 Contact with and (suspected) exposure to COVID-19 (principal)
CPT/HCPCS: C9803

== ENCOUNTER 2021-07-03 08:11 | Outpatient (REF) | payer MEDICAID, SELFPAY ==
[2021-07-03 09:01] LABS: Anion Gap 11 (12-20); Blood Urea Nitrogen 8 mg/dL (9-16); Calcium 10.2 mg/dL (8.4-10.2); Carbon Dioxide 26 mmol/L (22-29); Chloride 106 mmol/L (96-108); Estimated Glomerular Filt Rate > 60; Glucose Fasting 96 mg/dL (60-99); Potassium 3.8 mmol/L (3.3-5.1); Sodium 139 mmol/L (135-145)
== END 2021-07-03 08:12 | disposition home or self-care (01) ==
LOC: HO.LAB 08:11
PROVIDERS: Absent Provider General Practice; PCP General Practice; Visit Provider Anesthesiology
DX: M53.3 Sacrococcygeal disorders, not elsewhere classified (principal); N73.9 Female pelvic inflammatory disease, unspecified
CPT/HCPCS: 36415; 80048

== ENCOUNTER 2021-07-09 14:33 | Outpatient (REF) | payer MEDICAID, SELFPAY ==
--- NOTE | ~2021-07-09 | CT_ITS ---
EXAMINATION: CT PELVIS WITH CONTRAST CLINICAL INFORMATION: Pelvic inflammatory disease. COMPARISON: None TECHNIQUE: Helical scanning was performed with submillimeter collimation through the pelvis with the use of oral contrast and during bolus intravenous injection of 100 mL of Omnipaque 350 intravenous contrast. Sagittal and coronal multiplanar 2-D reconstructions were obtained. This CT examination was performed using dose optimization techniques as appropriate, variously including the following: *Automated exposure control *Adjustment of mA and/or kV according to patient size (this includes techniques or standardized protocols for targeted exams where dose is matched to indication/reason for exam; i.e. extremities or head) *Use of iterative reconstruction technique DLP: 358 mGy-cm FINDINGS: PELVIS: Anteverted, retroflexed and enlarged uterus. No focal lesion is seen. The urinary bladder is not distended. There are small hypodense areas in the right adnexa likely smaller and cyst. There is no free fluid. The left adnexa is unremarkable. There is moderate stool in the ascending colon and the rectum. There is no free fluid. No abnormal pelvic or inguinal lymph nodes. OSSEOUS STRUCTURES: There is no lytic or sclerotic process seen. CT/CT pelvis w con IMPRESSION: 1. Anteverted, retroflexed enlarged uterus without any visible focal lesion. 2. Small hypodense areas in the right adnexa probable small ovarian cysts. 3. Mild constipation.
[2021-07-09] MEDS: iohexoL 350 MG/ML 100 ML INFUS..BTL IV (15:56)
== END 2021-07-09 14:34 | disposition home or self-care (01) ==
LOC: HO.CT 14:33
PROVIDERS: Visit Provider Anesthesiology
DX: N73.9 Female pelvic inflammatory disease, unspecified (principal); M53.3 Sacrococcygeal disorders, not elsewhere classified
CPT/HCPCS: 72193; Q9967

== ENCOUNTER → 2021-08-06 12:59 | Outpatient (BNVA) | payer MEDICAID, SELFPAY | PROVIDERS: PCP General Practice; Referring Provider General Practice; Visit Provider Nurse Practitioner Family | DX: R00.2 Palpitations (principal) | CPT/HCPCS: 99212 ==

== ENCOUNTER → 2021-08-23 10:27 | Outpatient (BNVA) | payer MEDICAID, SELFPAY | PROVIDERS: PCP General Practice; Visit Provider Hospitalist | DX: J38.3 Other diseases of vocal cords (principal); J45.51 Severe persistent asthma with (acute) exacerbation; J30.9 Allergic rhinitis, unspecified; R06.00 Dyspnea, unspecified; R07.9 Chest pain, unspecified | CPT/HCPCS: 99212 ==

== ENCOUNTER 2021-12-26 07:57 | Emergency (ER) | payer MEDICAID, SELFPAY ==
--- NOTE | ~2021-12-26 | XR_ITS ---
EXAMINATION: XR SHOULDER, RIGHT CLINICAL INFORMATION: Right-sided shoulder pain COMPARISON: Right shoulder radiographs 01/28/2019 TECHNIQUE: Three views of the right shoulder. FINDINGS: There is a new area of calcification seen in the region of the supraspinatus tendon consistent with tendinitis. The bones and soft tissues are otherwise unremarkable. No fracture. Glenohumeral and acromioclavicular alignment is anatomic with normal joint space. No additional abnormal soft tissue calcifications. XR/XR shoulder RT min 2V IMPRESSION: No calcification in the region of the supraspinatus tendon concerning for tendinitis.
[2021-12-26 08:08] VITALS: BP 112/41; PULSE 64; RESP 14; TEMP 36.7; O2SAT 98; BMI 21.4
--- NOTE | 2021-12-26 09:39 | ED.EXTPRO ---
HPI - Extremity Problem General Chief complaint: Extremity Problem Stated complaint: shoulder and arm rt pain Time Seen by Provider: 12/26/21 09:16 Source: patient Mode of arrival: ambulatory History of Present Illness HPI Narrative: 41-year-old female with a past medical history of anxiety, asthma, depression, HLD, GERD, PTSD, presenting to the ED complaining of right shoulder pain radiating down right arm since last night after work. 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 Reports pain with ROM/decreased arm secondary to pain. Denies known injury/trauma or fall/direct injury, numbness, tingling, weakness, CP/SOB MD Complaint: extremity pain Onset (ago): day(s) Pain Consistency: constant Related Data Home Medications Medication Instructions Recorded Confirmed albuterol sulfate 2.5 mg/3 mL 2.5 mg inhalation Q4-6H PRN 03/10/20 08/06/21 (0.083 %) solution for nebulization Shortness Of Breath Or Wheezing albuterol sulfate 90 mcg/actuation 2 puff inhalation Q4-6H PRN 03/10/20 08/06/21 aerosol inhaler (ProAir HFA) Shortness Of Breath Or Wheezing amitriptyline 10 mg tablet 10 mg PO BEDTIME 03/10/20 08/06/21 aspirin 81 mg tablet,delayed 81 mg PO DAILY 03/10/20 08/06/21 release (Adult Low Dose Aspirin) atorvastatin 40 mg tablet 40 mg PO BEDTIME 03/10/20 08/06/21 djobkbefem-uphvfkgrqkvnb-anefaohz 1 cap PO Q4H PRN Headache 03/10/20 08/06/21 50 mg-300 mg-40 mg capsule (Fioricet) duloxetine 60 mg capsule,delayed 60 mg PO DAILY 03/10/20 08/06/21 release fluoxetine 10 mg capsule 10 mg PO BID 03/10/20 08/06/21 mirtazapine 30 mg tablet 30 mg PO BEDTIME 03/10/20 08/06/21 prazosin 2 mg capsule 2 mg PO BEDTIME 03/10/20 08/06/21 pregabalin 150 mg capsule (Lyrica) 150 mg PO DAILY 03/10/20 08/06/21 risperidone 0.5 mg tablet 0.5 mg PO DAILY 10/03/20 03/01/22 tizanidine 2 mg capsule 2 mg PO BEDTIME 03/10/20 08/06/21 Previous Rx's Medication Instructions Recorded montelukast 10 mg tablet 10 mg PO DAILY 30 days #30 tabs 08/31/20 tiotropium bromide 2.5 2 puff inhalation DAILY 30 days #4 03/22/21 mcg/actuation mist for inhalation grams (Spiriva Respimat) albuterol sulfate 2.5 mg/3 mL 2.5 mg (3 mL) inhalation Q4H PRN 07/02/21 (0.083 %) solution for nebulization for wheezing #375 mL budesonide-formoterol HFA 160 2 puff PO BID #10.2 grams 07/02/21 mcg-4.5 mcg/actuation aerosol inhaler (Symbicort) lidocaine 5 % topical patch 1 patch topical DAILY 30 days #30 08/23/21 (Lidoderm) ea famotidine 40 mg tablet 40 mg PO BEDTIME #30 tabs 09/12/21 pseudoephedrine HCl 120 mg 120 mg PO Q12H 30 days #60 tabs 12/10/21 tablet,extended release acetaminophen 500 mg tablet 500 mg PO Q6H PRN fever or pain 12/26/21 (Tylenol Extra Strength) #14 tabs cyclobenzaprine 5 mg tablet 5 mg PO Q8H PRN pain (scale score 12/26/21 7-10) 5 days #14 tabs naproxen 500 mg tablet 500 mg PO BID PRN pain 10 days #20 12/26/21 tabs Allergies Allergy/AdvReac Type Severity Reaction Status Date / Time No Known Allergies Allergy Verified 08/23/21 11:10 [No Known Allergies*] Review of Systems Review of Systems: Constitutional: No Weight loss, No Fever, No Chills ENT/Mouth: No Ear Pain, No Nasal Congestion, No sore throat, No Rhinorrhea, No Swallowing Difficulty Cardiovascular: No Chest Pain, No SOB Respiratory: No Cough, No Sputum, No Wheezing Gastrointestinal: No Nausea, No Vomiting, No Diarrhea, No Constipation, No Abdominal pain Genitourinary: No Dysuria, No Urinary Frequency, No Hematuria, No Urinary Incontinence/retention Musculoskeletal: + joint pain, No Myalgias, No Joint Swelling Skin: No Skin Lesions, No rash Neuro: No Weakness, No Numbness, No Paresthesias Yes all other systems are reviewed and are negative Constitutional: Constitutional: Reports as per [facility] Past Medical History Attestation statement: The following information was validated with the patient. Medical History Anxiety Asthma Chronic allergic rhinitis Depression Dyspnea Elevated cholesterol GERD (gastroesophageal reflux disease) Pelvic abscess in female PTSD (post-traumatic stress disorder) SOB (shortness of breath) Vocal cord dysfunction Surgical History History of gastric surgery Hx of tubal ligation Family History Family History Father No problems noted. Mother No problems noted. Other Asthma Social History Social History Patient Tobacco Use Status: Never used Tobacco Advance Directives: No Advance Directives Information Provided: Yes Physical Exam Vital Signs: Vital Signs: Last Vital Signs Temp 98.1 F 12/26/21 08:08 Pulse 64 12/26/21 08:08 Resp 14 12/26/21 08:08 BP 112/41 L 12/26/21 08:08 Pulse Ox 98 12/26/21 08:08 O2 Del Method 12/26/21 08:08 BMI result Body Mass Index 21.4 Const: General: cooperative, healthy appearing and no acute distress Orientation/consciousness: patient oriented x3 Limitations: no limitations HEENT: Head: Yes normal to inspection and Yes atraumatic Ears: hearing grossly normal bilaterally General nose exam: Normal external nose present Face and sinus: Yes normal facial exam Eyes: General: appearance normal, both eyes and all related structures EOM: EOMs intact bilaterally Neck: Neck: Yes normal visual inspection and Yes no meningeal signs Resp: Effort & Inspection: normal respiratory effort and no respiratory distress Cardio: Rate: regular rate Heart sounds: S1 normal heart sound present and S2 normal heart sound present Peripheral pulses: radial pulses present and ulnar radial pulses present Skin: Rashes: no rashes Wounds: no wounds Neuro: General: patient oriented x3, tone normal and no meningeal signs Gait exam (Neuro): Normal gait present Extrem: Other: Right upper extremity without notable deformity. + tenderness to right trapezius and right deltoid. Neurovascular intact distally. Limited ROM of shoulder secondary to pain. Elbow/forearm/wrist and hand nontender. Mild limited ROM at elbow secondary to pain. No snuffbox tenderness General: Yes normal to inspection Course Course Course Narrative: XR shoulder RT min 2V IMPRESSION: New calcification in the region of the supraspinatus tendon concerning for tendinitis. >> results discussed with patient including worrisome signs and symptoms and strict return precautions MDM - Extremity (Nontraumatic) MDM Narrative Medical decision making narrative: 41-year-old female with a past medical history of anxiety, asthma, depression, HLD, GERD, PTSD, presenting to the ED complaining of right shoulder pain radiating down right arm since last night after work. On exam vital signs stable, NAD, nontoxic appearing, physical exam as above with reproducible tenderness to right deltoid. No appreciable deformity, neurovascular intact distally. Limited ROM. Concern for MSK pain/drain vs muscle spasming. Low suspicion for fracture/dislocation Plan: X-rays, pain management Medical Records Attestation: I reviewed the patient's medical records. Lab Data Attestation: I reviewed the patient's lab results. Discharge Plan Discharge Clinical Impression: Tendinitis of shoulder Patient Disposition: Home, Self-Care Instructions: Rotator Cuff Tendinitis (ED) Additional Instructions: Your x-ray shows evidence of tendinitis. Rest. Alternate ice and heat at home. Naproxen as an anti-inflammatory/pain medication, take with food. In addition take Tylenol. Flexeril as a muscle relaxer, take at night as it makes you drowsy, do not drive, drink alcohol, or operate machinery while takin If symptoms persist or worsen return to the ED [place] radiograf?a muestra evidencia de tendinitis. Descansar. Alterna hielo y calor en casa. Naproxeno solitario medicamento antiinflamatorio/analg?sico, t?cervantes con alimentos. Adem?s eveline Tylenol. Flexeril solitario relajante muscular, t?cervantes por la noche ya que lo adormece, no maneje, gladys alcohol ni opere maquinaria mientras eveline Si los s?ntomas persisten o empeoran, regrese al servicio de urgencias. Prescriptions: New acetaminophen [Tylenol Extra Strength] 500 mg tablet 500 mg PO Q6H PRN (Reason: fever or pain) Qty: 14 0RF naproxen 500 mg tablet 500 mg PO BID PRN (Reason: pain) 10 Days Qty: 20 0RF cyclobenzaprine 5 mg tablet 5 mg PO Q8H PRN (Reason: pain (scale score 7-10)) 5 Days Qty: 14 0RF No Action montelukast 10 mg tablet 10 mg PO DAILY 30 Days Qty: 30 11RF albuterol sulfate 2.5 mg /3 mL (0.083 %) solution for nebulization 2.5 mg inhalation Q4H PRN (Reason: for wheezing) Qty: 375 11RF budesonide-formoterol [Symbicort] 160-4.5 mcg/actuation HFA aerosol inhaler 2 puff PO BID Qty: 10.2 11RF famotidine 40 mg tablet 40 mg PO BEDTIME Qty: 30 2RF pseudoephedrine HCl 120 mg tablet extended release 120 mg PO Q12H 30 Days Qty: 60 3RF albuterol sulfate 2.5 mg /3 mL (0.083 %) solution for nebulization 2.5 mg inhalation Q4-6H PRN (Reason: Shortness Of Breath Or Wheezing) albuterol sulfate [ProAir HFA] 90 mcg/actuation HFA aerosol inhaler 2 puff inhalation Q4-6H PRN (Reason: Shortness Of Breath Or Wheezing) aspirin [Adult Low Dose Aspirin] 81 mg tablet,delayed release (DR/EC) 81 mg PO DAILY atorvastatin 40 mg tablet 40 mg PO BEDTIME amitriptyline 10 mg tablet 10 mg PO BEDTIME prazosin 2 mg capsule 2 mg PO BEDTIME risperidone 0.5 mg tablet 0.5 mg PO DAILY fluoxetine 10 mg capsule 10 mg PO BID Rx Instructions: administer in the morning and at noon/midday pregabalin [Lyrica] 150 mg capsule 150 mg PO DAILY duloxetine 60 mg capsule,delayed release(DR/EC) 60 mg PO DAILY mirtazapine 30 mg tablet 30 mg PO BEDTIME qgnwqdfluc-wpyjixatgkbul-lkop [Fioricet] 50-300-40 mg capsule 1 cap PO Q4H PRN (Reason: Headache) tizanidine 2 mg capsule 2 mg PO BEDTIME Spiriva Respimat 2.5 mcg/actuation mist 2 puff inhalation DAILY 30 Days Qty: 4 11RF lidocaine [Lidoderm] 5 % adhesive patch,medicated 1 patch topical DAILY 30 Days Qty: 30 4RF Rx Instructions: leave on most painful area for up to 12 hrs Referrals: [place],[facility] [Primary Care Provider] - 1 week Stand Alone Forms: Work/School Release Print Language: Croatian
[2021-12-26] MEDS: Cyclobenzaprine HCl 5 MG TABLET PO (10:33)
[2021-12-26] MEDS: Ketorolac Tromethamine 30 MG/ML VIAL IM (10:34)
== END 2021-12-26 12:24 | disposition home or self-care (01) ==
PROVIDERS: Emergency Provider Emergency Medicine Emergency Medical Services
DX: M75.31 Calcific tendinitis of right shoulder (principal); E78.5 Hyperlipidemia, unspecified; Z79.82 Long term (current) use of aspirin; Z79.899 Other long term (current) drug therapy; Z79.02 Long term (current) use of antithrombotics/antiplatelets
CPT/HCPCS: 73030; 96372; 99283; 99284; J1885

== ENCOUNTER 2022-01-31 21:45 | Emergency (ER) | payer MEDICAID, SELFPAY ==
[2022-01-31 23:22] VITALS: BP 107/58; PULSE 61; RESP 14; TEMP 36.8; O2SAT 99; BMI 20.5
[2022-02-01 01:22] VITALS: BP 112/52; PULSE 62; RESP 16; TEMP 36.8; O2SAT 98
--- NOTE | 2022-02-01 01:30 | ED_ITS ---
HPI - Allergic Reaction General Chief complaint: Allergic Reaction Stated complaint: allergic reaction, all over Time Seen by Provider: 02/01/22 01:30 Source: patient Mode of arrival: ambulatory Limitations: no limitations History of Present Illness HPI narrative: Patient noticed hives all over the body since afternoon today unknown allergy no history of allergies before no shortness of breath no throat pain no facial swelling Related Data Home Medications Medication Instructions Recorded Confirmed albuterol sulfate 2.5 mg/3 mL 2.5 mg inhalation Q4-6H PRN 03/10/20 08/06/21 (0.083 %) solution for nebulization Shortness Of Breath Or Wheezing albuterol sulfate 90 mcg/actuation 2 puff inhalation Q4-6H PRN 03/10/20 08/06/21 aerosol inhaler (ProAir HFA) Shortness Of Breath Or Wheezing amitriptyline 10 mg tablet 10 mg PO BEDTIME 03/10/20 08/06/21 aspirin 81 mg tablet,delayed 81 mg PO DAILY 03/10/20 08/06/21 release (Adult Low Dose Aspirin) atorvastatin 40 mg tablet 40 mg PO BEDTIME 03/10/20 08/06/21 xgxnzciozq-pvfhoosxolivd-sxxtskjf 1 cap PO Q4H PRN Headache 03/10/20 08/06/21 50 mg-300 mg-40 mg capsule (Fioricet) duloxetine 60 mg capsule,delayed 60 mg PO DAILY 03/10/20 08/06/21 release fluoxetine 10 mg capsule 10 mg PO BID 03/10/20 08/06/21 mirtazapine 30 mg tablet 30 mg PO BEDTIME 03/10/20 08/06/21 prazosin 2 mg capsule 2 mg PO BEDTIME 03/10/20 08/06/21 pregabalin 150 mg capsule (Lyrica) 150 mg PO DAILY 03/10/20 08/06/21 risperidone 0.5 mg tablet 0.5 mg PO DAILY 03/10/20 08/06/21 tizanidine 2 mg capsule 2 mg PO BEDTIME 03/10/20 08/06/21 Previous Rx's Medication Instructions Recorded montelukast 10 mg tablet 10 mg PO DAILY 30 days #30 tabs 08/31/20 tiotropium bromide 2.5 2 puff inhalation DAILY 30 days #4 03/22/21 mcg/actuation mist for inhalation grams (Spiriva Respimat) albuterol sulfate 2.5 mg/3 mL 2.5 mg (3 mL) inhalation Q4H PRN 07/02/21 (0.083 %) solution for nebulization for wheezing #375 mL budesonide-formoterol HFA 160 2 puff PO BID #10.2 grams 07/02/21 mcg-4.5 mcg/actuation aerosol inhaler (Symbicort) lidocaine 5 % topical patch 1 patch topical DAILY 30 days #30 08/23/21 (Lidoderm) ea famotidine 40 mg tablet 40 mg PO BEDTIME #30 tabs 09/12/21 pseudoephedrine HCl 120 mg 120 mg PO Q12H 30 days #60 tabs 12/10/21 tablet,extended release acetaminophen 500 mg tablet 500 mg PO Q6H PRN fever or pain 12/26/21 (Tylenol Extra Strength) #14 tabs cyclobenzaprine 5 mg tablet 5 mg PO Q8H PRN pain (scale score 12/26/21 7-10) 5 days #14 tabs naproxen 500 mg tablet 500 mg PO BID PRN pain 10 days #20 12/26/21 tabs diphenhydramine HCl 25 mg capsule 25 mg PO Q6-8H PRN allergic 02/01/22 (Benadryl) reaction #30 caps prednisone 20 mg tablet 40 mg PO DAILY #10 tabs 02/01/22 Allergies Allergy/AdvReac Type Severity Reaction Status Date / Time No Known Allergies Allergy Verified 08/23/21 11:10 [No Known Allergies*] Review of Systems Review of Systems: Yes all other systems are reviewed and are negative PMFSH Past Medical History Medical History Anxiety Asthma Chronic allergic rhinitis Depression Dyspnea Elevated cholesterol GERD (gastroesophageal reflux disease) Pelvic abscess in female PTSD (post-traumatic stress disorder) SOB (shortness of breath) Vocal cord dysfunction Surgical History History of gastric surgery Hx of tubal ligation Family History Family History Father No problems noted. Mother No problems noted. Other Asthma Social History Social History Patient Tobacco Use Status: Never used Tobacco Advance Directives: No Advance Directives Information Provided: No Physical Exam ED Vital Signs: Vital Signs - 24 hr 01/31/22 23:22 02/01/22 01:22 02/01/22 01:45 Temperature 98.2 F 98.2 F Pulse Rate 61 62 66 Respiratory Rate 14 16 Blood Pressure 107/58 L 112/52 L 119/47 L Pulse Oximetry 99 98 Oxygen Delivery Method Room Air Room Air 02/01/22 01:45 02/01/22 02:37 02/01/22 03:32 Temperature Pulse Rate 66 62 66 Respiratory Rate 14 14 Blood Pressure 119/47 L 110/48 L 102/30 L Pulse Oximetry 99 99 100 Oxygen Delivery Method Room Air Room Air Room Air BMI result Body Mass Index 20.5 Appearance: Alert. Oriented X3. No acute distress. ENT: Pharynx normal. Oral Mucosa moist lips and tongue normal Neck: Normal inspection. Neck supple. CVS: Normal heart rate and rhythm. Pulses normal. Respiratory: No respiratory distress. Equal air entry bilateral, no whe ezing/rales/rhonchi Abdomen: Soft and nontender. Bowel sounds are present, Skin: Skin warm and dry. Hives all over the body on the trunk and the back and extremities Extremities: No lower extremity edema. No calf tenderness Neuro: Oriented X 3. MDM - Allergic Reaction MDM Narrative Medical decision making narrative: Patient allergic reaction from a known allergic improved after epi Benadryl famotidine and Decadron Discharge Plan Discharge Clinical Impression: Allergic reaction Patient Disposition: Home, Self-Care Instructions: General Allergic Reaction (ED) Additional Instructions: It is not very clear what causing the allergic reaction Take Benadryl and prednisone as advised Follow-up with PCP or further evaluation for the allergies No est? muy renetta qu? causa la reacci?n al?rgica. [place] Benadryl y prednisona seg?n lo recomendado Seguimiento con PCP o evaluaci?n adicional para las alergias Prescriptions: New prednisone 20 mg tablet 40 mg PO DAILY Qty: 10 0RF diphenhydramine HCl [Benadryl] 25 mg capsule 25 mg PO Q6-8H PRN (Reason: allergic reaction) Qty: 30 0RF No Action montelukast 10 mg tablet 10 mg PO DAILY 30 Days Qty: 30 11RF albuterol sulfate 2.5 mg /3 mL (0.083 %) solution for nebulization 2.5 mg inhalation Q4H PRN (Reason: for wheezing) Qty: 375 11RF budesonide-formoterol [Symbicort] 160-4.5 mcg/actuation HFA aerosol inhaler 2 puff PO BID Qty: 10.2 11RF famotidine 40 mg tablet 40 mg PO BEDTIME Qty: 30 2RF pseudoephedrine HCl 120 mg tablet extended release 120 mg PO Q12H 30 Days Qty: 60 3RF acetaminophen [Tylenol Extra Strength] 500 mg tablet 500 mg PO Q6H PRN (Reason: fever or pain) Qty: 14 0RF naproxen 500 mg tablet 500 mg PO BID PRN (Reason: pain) 10 Days Qty: 20 0RF cyclobenzaprine 5 mg tablet 5 mg PO Q8H PRN (Reason: pain (scale score 7-10)) 5 Days Qty: 14 0RF albuterol sulfate 2.5 mg /3 mL (0.083 %) solution for nebulization 2.5 mg inhalation Q4-6H PRN (Reason: Shortness Of Breath Or Wheezing) albuterol sulfate [ProAir HFA] 90 mcg/actuation HFA aerosol inhaler 2 puff inhalation Q4-6H PRN (Reason: Shortness Of Breath Or Wheezing) aspirin [Adult Low Dose Aspirin] 81 mg tablet,delayed release (DR/EC) 81 mg PO DAILY atorvastatin 40 mg tablet 40 mg PO BEDTIME amitriptyline 10 mg tablet 10 mg PO BEDTIME prazosin 2 mg capsule 2 mg PO BEDTIME risperidone 0.5 mg tablet 0.5 mg PO DAILY fluoxetine 10 mg capsule 10 mg PO BID Rx Instructions: administer in the morning and at noon/midday pregabalin [Lyrica] 150 mg capsule 150 mg PO DAILY duloxetine 60 mg capsule,delayed release(DR/EC) 60 mg PO DAILY mirtazapine 30 mg tablet 30 mg PO BEDTIME xrveltlcis-gbsrxgaumoicb-zajl [Fioricet] 50-300-40 mg capsule 1 cap PO Q4H PRN (Reason: Headache) tizanidine 2 mg capsule 2 mg PO BEDTIME Spiriva Respimat 2.5 mcg/actuation mist 2 puff inhalation DAILY 30 Days Qty: 4 11RF lidocaine [Lidoderm] 5 % adhesive patch,medicated 1 patch topical DAILY 30 Days Qty: 30 4RF Rx Instructions: leave on most painful area for up to 12 hrs Interventions: ED Discharge Assessment Last Done: 02/01/22 03:36 Discharge Date/Time: 02/01/22 03:35 Print Language: Marshallese
[2022-02-01 01:45] VITALS: BP 119/47; PULSE 66; RESP 14; O2SAT 99
[2022-02-01] MEDS: Famotidine 20 MG TABLET PO (01:45)
[2022-02-01] MEDS: EPINEPHrine 1 MG/ML VIAL 0.3 MG IM (01:45)
--- NOTE | 2022-02-01 01:45 | PC.NURSE ---
Pt A+Ox3,
[2022-02-01 02:37] VITALS: BP 110/48; PULSE 62; O2SAT 99
[2022-02-01] MEDS: Loratadine 10 MG TABLET PO (03:26)
[2022-02-01] MEDS: dexAMETHasone 2 MG TABLET 10 MG PO (03:26)
[2022-02-01 03:32] VITALS: BP 102/30; PULSE 66; RESP 14; O2SAT 100
== END 2022-02-01 03:35 | disposition home or self-care (01) ==
PROVIDERS: Emergency Provider Internal Medicine; PCP General Practice
DX: T78.40XA Allergy, unspecified, initial encounter (principal); L50.9 Urticaria, unspecified; X58.XXXA Exposure to other specified factors, initial encounter
CPT/HCPCS: 96372; 99283; 99284; J0171; J8540

== ENCOUNTER → 2022-02-13 08:38 | Outpatient (BNVA) | payer MEDICAID, SELFPAY | PROVIDERS: PCP General Practice; Visit Provider Physician Assistant | DX: M75.82 Other shoulder lesions, left shoulder (principal); S46.812A Strain of other muscles, fascia and tendons at shoulder and upper arm level, left arm, initial encounter | CPT/HCPCS: 20610; 99212; J1040 ==

== ENCOUNTER 2022-03-13 11:13 | Outpatient (REF) | payer MEDICAID, SELFPAY ==
[2022-03-13 11:27] LABS: MANUAL DIFF FLAG NO
[2022-03-13 12:20] LABS: Basophils Percent Auto 0.5 % (0-2); Eosinophils Absolute Auto 0.1 X10*3/uL (0.0-0.4); Eosinophils Percent Auto 1.2 % (0-4); Hematocrit 35.1 % (37.0-47.0); Hemoglobin 10.7 g/dl (12.0-16.0); Lymphocytes Absolute Auto 2.1 X10*3/uL (1.2-4.9); Mean Corpuscular HGB Conc 30.5 g/dl (31.0-35.0); Mean Corpuscular Hemoglobin 24.3 pg (27.0-33.0); Mean Corpuscular Volume 79.6 fL (80.0-98.0); Mean Platelet Volume 9.7 fL (9.4-12.3); Monocytes Absolute Auto 0.2 X10*3/uL (0.1-1.2); Monocytes Percent Auto 4.9 % (2-11); Neutrophils Percent Auto 45.4 % (45-73); Platelet Count 373 X10*3/uL (160-400); Red Blood Count 4.41 X10*6/uL (4.20-5.50); Red Cell Distribution Width 16.9 % (11.0-16.0); White Blood Count 4.3 X10*3/uL (4.8-10.8)
[2022-03-13 13:03] LABS: Erythrocyte Sedimentation Rate 16 MM/HR (0-20)
[2022-03-13 13:15] LABS: Alanine Aminotransferase 33 U/L (0-31); Albumin Level 4.3 g/dL (3.5-5.0); Alkaline Phosphatase 57 U/L (39-117); Anion Gap 13 (12-20); Aspartate Amino Transferase 30 U/L (5-31); Bilirubin Direct 0.2 mg/dL (0.0-0.5); Bilirubin Total 0.4 mg/dL (0.0-1.0); Blood Urea Nitrogen 10 mg/dL (9-16); Calcium 9.6 mg/dL (8.4-10.2); Carbon Dioxide 26 mmol/L (22-29); Chloride 105 mmol/L (96-108); Estimated Glomerular Filt Rate > 60; Glucose Random 114 mg/dL (60-115); Potassium 4.1 mmol/L (3.3-5.1); Sodium 140 mmol/L (135-145); Total Protein 7.3 g/dL (6.5-8.0)
[2022-03-13 13:25] LABS: TSH reflex Free T4 2.06 uIU/mL (0.32-4.0)
== END 2022-03-13 11:14 | disposition home or self-care (01) ==
LOC: HO.LAB 11:13
PROVIDERS: PCP General Practice; Visit Provider Hospitalist
DX: J45.51 Severe persistent asthma with (acute) exacerbation (principal); R06.00 Dyspnea, unspecified; R07.89 Other chest pain; J38.3 Other diseases of vocal cords; J30.9 Allergic rhinitis, unspecified; M54.2 Cervicalgia; R63.4 Abnormal weight loss; D64.9 Anemia, unspecified
CPT/HCPCS: 36415; 80048; 80076; 82785; 84443; 85025; 85652; 86003; 99212

== ENCOUNTER 2022-03-28 09:35 | Outpatient (REF) | payer MEDICAID, SELFPAY ==
--- NOTE | ~2022-03-28 | MM_ITS ---
EXAMINATION: MM SCREENING DIGITAL BREAST TOMOSYNTHESIS, BILATERAL CLINICAL INFORMATION: Screening. Asymptomatic. The lifetime risk of breast cancer based on the Tyrer-Cuzick Model is 24.4%. Additional annual screening with breast MRI may be of benefit in women with a score of 20% or greater. COMPARISON: Mammography: 03/28/2021 and studies dating back to 07/18/2017. TECHNIQUE: Digital breast tomosynthesis is performed in both the craniocaudal and mediolateral oblique views along with computer-aided detection (CAD). Synthesized 2D images are generated from the tomosynthesis. FINDINGS: The breasts are heterogeneously dense, which may obscure small masses (ACR BI-RADS breast composition Category c). There is waxing and waning of circumscribed densities bilaterally consistent with previously shown cysts. About the retroareolar region of the left breast, on mediolateral oblique projection, there is a new appearance of possible region of architectural distortion. Spot compression view is recommended in mediolateral oblique projection as well as full-field 90-degree mediolateral view. MM/MM tomosynthesis screening BI IMPRESSION: Retroareolar left breast density for further evaluation. ASSESSMENT: BI-RADS 0: Incomplete - Need Additional Imaging Evaluation RECOMMENDATION: 1. Additional views of the left breast. 2. Targeted ultrasound if warranted after review of the additional views. 3. Radiology department staff will contact the patient for additional imaging. This patient's information was entered into a reminder system with a target due date for their next mammogram.
== END 2022-03-28 09:36 | disposition home or self-care (01) ==
LOC: HO.MAMMO 09:35
PROVIDERS: PCP General Practice; Visit Provider Family Medicine
DX: Z12.31 Encounter for screening mammogram for malignant neoplasm of breast (principal)
CPT/HCPCS: 77063; 77067

== ENCOUNTER 2022-04-08 12:36 | Outpatient (REF) | payer MEDICAID, SELFPAY ==
--- NOTE | ~2022-04-08 | MM_ITS ---
EXAMINATION: MM DIAGNOSTIC DIGITAL BREAST TOMOSYNTHESIS, LEFT CLINICAL INFORMATION: Recall from screening for question of architectural changes retroareolar position on one view. Family history breast cancer. TC score 24%. COMPARISON: Mammography: 03/28/2022, 03/25/2021, 01/04/2020 TECHNIQUE: Digital breast tomosynthesis is performed. 2D images are generated from the tomosynthesis. The following views are obtained: ML, spot MLO. FINDINGS: The breasts are heterogeneously dense, which may obscure small masses (ACR BI-RADS breast composition Category c). The additional views show no architectural abnormality, developing density, or other suspicious change in the retroareolar left breast. Parenchymal pattern is similar to prior exams. Results are discussed with the patient at time of visit, using an nutritional assistant. MM/MM tomosynthesis added views L IMPRESSION: Additional views show no architectural abnormality. No significant change from prior studies. ASSESSMENT: BI-RADS 1: Negative RECOMMENDATION: Routine annual mammography screening. This patient's information was entered into a reminder system with a target due date for their next mammogram.
== END 2022-04-08 12:37 | disposition home or self-care (01) ==
LOC: HO.MAMMO 12:36
PROVIDERS: PCP General Practice; Visit Provider General Practice
DX: R92.2 Inconclusive mammogram (principal)
CPT/HCPCS: 77061; 77065

== ENCOUNTER 2023-04-06 10:28 | Outpatient (REF) | payer MEDICAID, SELFPAY | END 2023-04-06 10:29 | disposition home or self-care (01) | LOC: HO.MAMMO 10:28 | PROVIDERS: PCP General Practice; Visit Provider General Practice | DX: Z12.31 Encounter for screening mammogram for malignant neoplasm of breast (principal) | CPT/HCPCS: 77063; 77067 ==

== ENCOUNTER → 2023-04-06 10:45 | Outpatient (BNV) | payer MEDICAID, SELFPAY | PROVIDERS: PCP General Practice; Visit Provider Radiology Diagnostic Radiology | DX: Z12.31 Encounter for screening mammogram for malignant neoplasm of breast (principal) | CPT/HCPCS: 77063; 77067 ==

== ENCOUNTER 2023-04-15 08:58 | Outpatient (AMB) | payer MEDICAID, SELFPAY ==
[2023-04-15 09:17] VITALS: BP 100/60; PULSE 68; O2SAT 99; BMI 22.0
--- NOTE | 2023-04-15 09:17 | MHC.OFFVIS ---
Intake Vital Signs 04/15/23 09:17 Height 5 ft 4 in Weight 128 lb BMI 22.0 BP 100/60 Blood Pressure Location Lt brachial Position Sitting Pulse 68 Pulse Source Pulse Oximeter Pulse Oximetry (%) 99 Oxygen Delivery Method Room Air Intake Visit Reasons: Shortness of breath General House Worker Required: No Allergies No Known Allergies [No Known Allergies*] Allergy (Verified 04/15/23 09:19) HPI HPI Comments History of Present Illness Details The patient is a 42-year-old woman with known significant asthma in addition to shortness of breath. She has significant allergies. There was a concern of a discomfort around her neck area. Therefore, she was referred to ENT and had laryngoscopy. No evidence of vocal cord dysfunction appreciated. Although she still continues to have some discomfort on her trachea. Her sister to breathing sometime she needs to hold her trachea with her hand she breathes to ease her breathing. She has been using her inhaler therapy without any significant improvement. At this point we will alternate her inhalers to see if there is any improvement. She has been maxed out with her respiratory therapy at this time. We did look at her allergy studies demonstrating significant allergies. Her eosinophils were normal and her IgE level was slightly elevated. At this point she will be a good candidate for Xolair to help her with her significant asthma symptoms. In the meantime will have a repeat chest x-ray to see if we see any abnormalities around the mid tracheal area. If she still continues to have that neck/chest discomfort then will request a CT scan of the chest to better appreciate that area. A bronchoscopy may also be warranted in order to better appreciate the infraglottic area that was not appreciated on laryngoscopy. 03/13/2022 the patient is here for pulmonary follow-up visit. She is shortness of breath and chest tightness. Lzzs-fr-efnezlil severity. It is better at this time. She has been having to use her rescue inhaler more often. she continues uses Symbicort and Spiriva. She has been noticing more allergy symptoms with nasal congestion and postnasal drip. Will go ahead and start her on Zyrtec. Patient also she did allergy testing. Patient is still having significant issues with weight loss. She apparently did have gastric sleeve surgery many years ago but then she stabilized now she continues to have significant weight loss. We did review her blood work that she had previously. The patient does have some degree of anemia. Explained to her that this can also resulting worsening shortness of breath. 04/15/2023 the patient is here for a pulmonary follow-up visit. She has had worsening respiratory symptoms lately. She had been on Symbicort and Spiriva but she ran out. She was able to get a Symbicort from a family member. She has been also using her rescue inhaler regularly daily because of her worsening chest tightness. Will go ahead and optimize her therapy by placing on breast treat. This way the patient will have better adherence to her therapy. If she is no better she can also consider getting blood work including allergy testing to see if she would benefit from biologic therapy. My suspicion is that she needs to continue to be adherent with therapy. She also had significant weight loss after having a gastric sleeve surgery. She is having issues with hair loss. She will follow-up with her bariatric surgeon. [facility], [facility] Medical History (Updated 03/13/22 @ 10:58 by Shubham Castillo MD) Allergic reaction Pelvic abscess in female Anxiety PTSD (post-traumatic stress disorder) SOB (shortness of breath) GERD (gastroesophageal reflux disease) Elevated cholesterol Depression Dyspnea Chronic allergic rhinitis Asthma Vocal cord dysfunction Surgical History History of gastric surgery Hx of tubal ligation Family History Father No problems noted. Mother No problems noted. Other Asthma Social History Patient Tobacco Use Status: Never used Tobacco Review of Systems Const Denies night sweats and Reports weight loss ENT Denies change in voice, Denies lip swelling, Denies mouth pain, Reports nasal congestion, Reports nasal discharge and Denies tongue swelling Card Denies chest pain and Reports dyspnea on exertion Resp Reports cough, Reports pain with cough, Reports dyspnea on exertion and Reports wheezing GI Denies abdominal pain Musc Denies no additional complaints Skin/Breast Reports alopecia Neuro Denies Neuro-related abnormal movements Psych Denies no additional complaints Giorgi/Lymph Denies easy bleeding and Denies lymphadenopathy Aller/Immun Denies lip swelling, Denies tongue swelling and Reports wheezing Physical Exam Vital Signs: Last Vital Signs Pulse 68 04/15/23 09:17 BP 100/60 04/15/23 09:17 Pulse Ox 99 04/15/23 09:17 Oxygen Delivery Method Room Air 04/15/23 09:17 BMI result Body Mass Index 22.0 Const General: alert Neck Neck: Yes normal visual inspection, Yes full ROM and Yes no lymphadenopathy Chest Chest palpation & inspection: normal inspection of the chest Resp Auscultation: diminished lung sounds Cardio Rate: regular rate Rhythm: regular rhythm Heart sounds: S1 normal heart sound present and S2 normal heart sound present GI Palpation (GI): Soft to palpation and nontender Auscultation: normal bowel sounds Skin General skin exam: rashes and/or lesions noted Assessment & Plan Assessment & Plan (1) Asthma: Code(s): J45.909 - Unspecified asthma, uncomplicated Qualifiers: Asthma complication type: with acute exacerbation Asthma persistence: persistent Asthma severity: severe Qualified Code(s): J45.51 - Severe persistent asthma with (acute) exacerbation (2) Vocal cord dysfunction: Comment: per laryngoscopy by ENT Code(s): J38.3 - Other diseases of vocal cords (3) Chronic allergic rhinitis: Code(s): J30.9 - Allergic rhinitis, unspecified (4) Dyspnea: Code(s): R06.00 - Dyspnea, unspecified Qualifiers: Dyspnea type: dyspnea on exertion Qualified Code(s): R06.00 - Dyspnea, unspecified Plan stop Symbicort stop Spiriva start Breztri MARY CARMEN as needed continue singulair continue [facility] Bloodwork F/U 1 year Orders: Orders Immunoglobulins,IgG IgA IgM Today J30.9 - Allergic rhinitis, unspecified, J45.909 - Unspecified asthma, uncomplicated Immunoglobulin E Today J30.9 - Allergic rhinitis, unspecified, J45.909 - Unspecified asthma, uncomplicated Complete Blood Count Auto Diff Today J30.9 - Allergic rhinitis, unspecified, J45.909 - Unspecified asthma, uncomplicated Erythrocyte Sedimentation Rate Today J30.9 - Allergic rhinitis, unspecified, J45.909 - Unspecified asthma, uncomplicated Medications: New albuterol sulfate 2.5 mg (3 mL) inhalation Q4-6H PRN 180 mL 11RF Shortness Of Breath Or Wheezing albuterol sulfate 90 mcg/actuation (ProAir HFA) 2 puffs inhalation Q4-6H PRN 8.5 grams 11RF Shortness Of Breath Or Wheezing vbllnnqpfd-qjhqdkep-ymkmceynbm 160-9-4.8 mcg/actuation (Breztri Aerosphere) 2 inhalations inhalation BID 30 days 10.7 grams 11RF Coding Level of Care Code Est Pt Level 4 (92831) Diagnoses Severe persistent asthma with acute exacerbation J45.51 Asthma complication type: with acute exacerbation Asthma persistence: persistent Asthma severity: severe Vocal cord dysfunction J38.3 Chronic allergic rhinitis J30.9 Dyspnea on exertion R06.00 Dyspnea type: dyspnea on exertion Time Spent (min) 16
== END 2023-04-15 09:32 | disposition home or self-care (01) ==
PROVIDERS: PCP General Practice; Visit Provider Hospitalist
DX: J45.51 Severe persistent asthma with (acute) exacerbation (principal); J38.3 Other diseases of vocal cords; J30.9 Allergic rhinitis, unspecified; R06.00 Dyspnea, unspecified
CPT/HCPCS: 99214

== ENCOUNTER → 2023-04-15 08:58 | Outpatient (BNVA) | payer MEDICAID, SELFPAY | PROVIDERS: PCP General Practice; Visit Provider Hospitalist | DX: J45.51 Severe persistent asthma with (acute) exacerbation (principal); J38.3 Other diseases of vocal cords; J30.9 Allergic rhinitis, unspecified; R06.00 Dyspnea, unspecified | CPT/HCPCS: 99212 ==